=== PATIENT | female | born 1995 | race Caucasian/White ===

== ENCOUNTER 2016-12-23 20:17 | Emergency (ER) | payer OTHER ==
[~2016-12-23] VITALS: Ht 154.9 cm; Wt 64.4 kg
[2016-12-23 20:21] VITALS: TEMP 37; Ht 154.9 cm; Wt 64.4 kg
[2016-12-23 22:35] VITALS: O2SAT 98
[2016-12-23 22:58] LABS: BASO % 0.5 %; BASO ABS # 0.03 K/uL (0-0.2); COMPLETE YES; EOS % 2.5 %; HEMATOCRIT 40.7 % (37-47); LYMPH % 41.1 %; LYMPH ABS # 2.66 K/uL (1.2-3.4); MEAN CELL VOLUME 88.7 fL (80-100); MEAN CORPUSCULAR HEMOGLOBIN 30.5 pg (25-34); MEAN CORPUSCULAR HGB CONC 34.4 g/dl (32-36); MEAN PLATELET VOLUME 10.5 fL (7.4-10.4); MONO % 8.7 %; NEUT % 47.2 %; PLATELET COUNT 214 K/uL (130-400); RED BLOOD COUNT 4.59 M/uL (4.2-5.4); WHITE BLOOD COUNT 6.47 K/uL (4.8-10.8)
[2016-12-23 23:13] LABS: PARTIAL THROMBOPLASTIN RATIO 1.2; PROTHROMBIN TIME (PATIENT) 10.9 SECONDS (9.0-12.0)
[2016-12-23 23:17] LABS: ALT/SGPT 20 U/L (12-78); AST/SGOT 17 U/L (15-37); BLOOD UREA NITROGEN 12 mg/dl (7-18); BUN/CREATININE RATIO 16.5 (10-20); CARBON DIOXIDE 27 mmol/L (21-32); CHLORIDE 103 mmol/L (98-107); CREATININE 0.71 mg/dl (0.60-1.20); GLUCOSE 79 mg/dl (70-99); MAGNESIUM 2.1 mg/dl (1.8-2.4); POTASSIUM 3.7 mmol/L (3.5-5.1); SODIUM 142 mmol/L (136-145)
[2016-12-23 23:28] LABS: ALKALINE PHOSPHATASE 66 U/L (45-117)
[2016-12-23 23:38] LABS: PREG INTERNAL NEGATIVE QC NEG CLEAR BACKGROUND; PREG INTERNAL POSITIVE QC POS CONTROL LINE
[2016-12-23] MEDS ORDERED: BUPR75TA20 PO (23:41)
[2016-12-23] MEDS ORDERED: CITA40TA4 PO (23:41)
[2016-12-23] MEDS ORDERED: CITA10TA8 PO (23:41)
[2016-12-24 00:08] LABS: LYME DISEASE AB IGG NEG (NEG); LYME DISEASE AB IGM NEG (NEG)
[2016-12-24 00:29] VITALS: BP 126/55; PULSE 83; O2SAT 99
--- NOTE | 2016-12-24 03:57 | EMERGENCY ROOM VISIT NOTE ---
History First contact with patient: 22:03 Chief Complaint: ILLNESS Stated Complaint: HEADACHE,FATIGUE,BRUISING ON LEGS,ACHY MUSCLES, TI History of Present Illness The patient is a 21 year old female who presents to the Emergency Room with complaints of fatigue, headaches, nausea, occasional bruising for the past few months. Patient states sometimes when she wakes up she is a headache with nausea. Patient does take anti-anxiety and depression medications. No recent change in this. She does not see a therapist. Patient denies chest pain, dyspnea, fever, chills, neck stiffness, sore throat, abdominal pain, joint swellings, cough, congestion. She is tolerating by mouth fluids and food. Patient states she just was to make sure she is okay. Review of Systems See HPI for pertinent positives & negatives. A total of 10 systems reviewed and were otherwise negative. Past Medical/Surgical History anxiety, depression Social History Smoking Status: Never Smoker Current/Historical Medications Scheduled Bupropion (Wellbutrin), Unknown Dose PO DAILY Citalopram (Citalopram Hydrobromide), Unknown Dose PO DAILY Citalopram Hydrobromide (Celexa), 10 MG PO DAILY Allergies Coded Allergies: No Known Allergies (Unverified , 12/23/16) Physical Exam Vital Signs Date Time Temp Pulse Resp B/P Pulse Ox O2 Delivery O2 Flow Rate FiO2 12/24/16 00:29 83 20 126/55 99 Room Air 12/23/16 22:49 63 12/23/16 22:47 63 16 118/65 100 Room Air 72 112/75 87 117/67 12/23/16 22:41 63 20 121/65 98 Room Air 12/23/16 22:35 98 Room Air 12/23/16 20:21 37.0 66 18 117/68 94 Room Air Pain Rating (0-10): 3.0 Physical Exam VITALS: Vitals are noted on the nurse's note and reviewed by myself. Vital signs stable. GENERAL: Pleasant female, in no acute distress, nondiaphoretic, well-developed well-nourished. SKIN: The skin was without rashes, erythema, edema, or bruising. There is no tenting of the skin. Capillary reflex less than 2 seconds. HEAD: Normocephalic atraumatic. EARS: External auditory canals clear, tympanic membranes pearly kessler without erythema or effusion bilaterally. EYES: Pupils equal round and reactive to light and accommodation. Conjunctivae without injection, sclerae without icterus. Extraocular movements intact. NOSE: Patent, turbinates without inflammation or discharge. No sinus tenderness. MOUTH: Mucous membranes moist. Pharynx without erythema or exudate. Uvula midline. Airway patent. Tongue does not deviate. NECK: Supple without nuchal rigidity. No lymphadenopathy. No thyromegaly. Cervical spine is nontender. No JVD. HEART: Regular rate and rhythm without murmurs gallops or rubs. LUNGS: Clear to auscultation bilaterally without wheezes, rales or rhonchi. No dullness to percussion. No retractions or accessory muscle use. ABDOMEN: Positive bowel sounds x 4. Normal tympanic percussion. Soft, nontender, without masses or organomegaly. Cheatham sign negative. No guarding or rebound tenderness. MUSCULOSKELETAL: No muscle atrophy, erythema, or edema noted. NEURO: Patient was alert and oriented to person place and time. Normal sensation to light and sharp touch. No focal neurological deficits. Cranial nerves II-12 grossly intact. No pronator drift. Cerebellar exam intact Medical Decision & Procedures Laboratory Results 12/23/16 22:35 Red Blood Count 4.59, Mean Corpuscular Volume 88.7, Mean Corpuscular Hemoglobin 30.5, Mean Corpuscular Hemoglobin Concent 34.4, Mean Platelet Volume 10.5, Neutrophils (%) (Auto) 47.2, Lymphocytes (%) (Auto) 41.1, Monocytes (%) (Auto) 8.7, Eosinophils (%) (Auto) 2.5, Basophils (%) (Auto) 0.5, Neutrophils # (Auto) 3.06, Lymphocytes # (Auto) 2.66, Monocytes # (Auto) 0.56, Eosinophils # (Auto) 0.16, Basophils # (Auto) 0.03 12/23/16 22:35 Test 12/23/16 22:35 White Blood Count 6.47 K/uL (4.8-10.8) Red Blood Count 4.59 M/uL (4.2-5.4) Hemoglobin 14.0 g/dL (12.0-16.0) Hematocrit 40.7 % (37-47) Mean Corpuscular Volume 88.7 fL (80-100) Mean Corpuscular Hemoglobin 30.5 pg (25-34) Mean Corpuscular Hemoglobin Concent 34.4 g/dl (32-36) Platelet Count 214 K/uL (130-400) Mean Platelet Volume 10.5 fL (7.4-10.4) Neutrophils (%) (Auto) 47.2 % Lymphocytes (%) (Auto) 41.1 % Monocytes (%) (Auto) 8.7 % Eosinophils (%) (Auto) 2.5 % Basophils (%) (Auto) 0.5 % Neutrophils # (Auto) 3.06 K/uL (1.4-6.5) Lymphocytes # (Auto) 2.66 K/uL (1.2-3.4) Monocytes # (Auto) 0.56 K/uL (0.11-0.59) Eosinophils # (Auto) 0.16 K/uL (0-0.5) Basophils # (Auto) 0.03 K/uL (0-0.2) RDW Standard Deviation 40.5 fL (36.4-46.3) RDW Coefficient of Variation 12.8 % (11.5-14.5) Immature Granulocyte % (Auto) 0.0 % Immature Granulocyte # (Auto) 0.00 K/uL (0.00-0.02) Prothrombin Time 10.9 SECONDS (9.0-12.0) Prothromb Time International Ratio 1.0 (0.9-1.1) Activated Partial Thromboplast Time 30.8 SECONDS (21.0-31.0) Partial Thromboplastin Ratio 1.2 Anion Gap 12.0 mmol/L (3-11) Est Creatinine Clear Calc Drug Dose 108.6 ml/min Estimated GFR () 142.1 Estimated GFR (Non- 122.6 BUN/Creatinine Ratio 16.5 (10-20) Calcium Level 9.0 mg/dl (8.5-10.1) Magnesium Level 2.1 mg/dl (1.8-2.4) Total Bilirubin 0.2 mg/dl (0.2-1) Direct Bilirubin < 0.1 mg/dl (0-0.2) Aspartate Amino Transf (AST/SGOT) 17 U/L (15-37) Alanine Aminotransferase (ALT/SGPT) 20 U/L (12-78) Alkaline Phosphatase 66 U/L (45-117) Total Protein 7.9 gm/dl (6.4-8.2) Albumin 4.2 gm/dl (3.4-5.0) Thyroid Stimulating Hormone (TSH) 3.440 uIu/ml (0.300-4.500) Human Chorionic Gonadotropin, Qual NEG (NEG) Lyme Disease IgG Antibody NEG (NEG) Lyme Disease IgM Antibody NEG (NEG) Monoscreen NEG (NEG) ED Course Prior records/ancillary studies reviewed and summarized above. Nursing notes reviewed. Additional history obtained from friends The patient's history was concerning for fatigue, headache, nausea Differential diagnosis: Etiologies such as metabolic, infection, hypo/hyperglycemia, electrolyte abnormalities, cardiac sources, intracerebral event, toxicologic, neurologic, as well as others were entertained. Physical examination: As above. ER treatment provided: IV Lock By mouth fluids On reassessment the patient felt better. Diagnostics interpretation by me: ECG: Normal sinus, normal intervals, no acute ST-T wave changes. Impression normal sinus rhythm interpreted by myself The labs revealed no worrisome leukocytosis or electrolyte abnormality. Euthyroid, negative mono Imaging studies: CT head negative for intracranial bleed per stat radiology Exam and history seem consistent with fatigue with unclear etiology. This could be related to patient's depression. She was strongly encouraged to follow -up with health services for further evaluation and workup for her ongoing fatigue. Patient had no suicidal or homicidal ideations. Patient had unremarkable workup. She is well-appearing. She is neurovascularly and neurologically intact. She is advised to return to the ER immediately for headache, fevers, confusion, worsening signs or symptoms or as needed. By the evaluation outlined above emergent etiologies such as infection, electrolyte abnormalities, cardiac sources, intracerebral event, toxologic, neurologic, abnormalities blood glucose, metabolic, as well as others were deemed relatively unlikely. The pt informed about the findings as listed above. All questions were answered and pleased with the treatment. Return instructions were outlined and the patient was discharged in stable condition. Case reviewed with my attending Referral: The patient was referred back to primary care physician for follow-up in 2 to 3 days for a recheck of the current condition. Medical Decision As above Impression Primary Impression: Fatigue Departure Information Dispostion Home / Self-Care Condition GOOD Forms WORK / SCHOOL INSTRUCTIONS, HOME CARE DOCUMENTATION FORM, Days off school: 1 School Instructions, IMPORTANT VISIT INFORMATION Patient Instructions My [facility] Additional Instructions Ibuprofen(Motrin, Advil) may be used for fever or pain. Use 600mg every six hours as needed. Take with food. Avoid using more than 2400mg in a 24 hour period. Do not use 2400mg per day for more than three consecutive days without physician direction. Prolonged inappropriate use can lead to stomach upset or ulcers. (AND/OR) Acetaminophen(Tylenol) may be used for fever or pain. Use 1000mg every six hours as needed. Avoid using more than 3000mg in a 24 hour period. Rest and drink plenty of fluids as tolerated. Continue current medications. Return to the ER immediately for worsening or persistent fatigue, abdominal pain , vomiting, fevers, chest pains, difficulty breathing, worsening of your condition, or as needed. Follow up with your primary physician in 2-3 days for a recheck of your current condition. Problem Qualifiers Primary Impression: Fatigue Fatigue type: unspecified Qualified Codes: R53.83 - Other fatigue
--- NOTE | 2016-12-24 06:40 | DIAGNOSTIC IMAGING REPORT ---
CT OF THE HEAD WITHOUT CONTRAST CLINICAL HISTORY: Headache and nausea. COMPARISON STUDY: No previous studies for comparison. CT DOSE: 1074.96 mGy.cm TECHNIQUE: Helical axial images of the head were obtained without IV contrast. Automated exposure control was utilized for the study. FINDINGS: No acute intracranial hemorrhage, midline shift or mass effect is present. Brain volume is normal. Ventricular system is normal. Basilar cisterns are patent. There are no extra-axial collections. Silva-white differentiation is maintained. There are no findings to suggest acute dural sinus thrombosis or acute territorial infarct. There are no calvarial abnormalities. Visualized portions of the sinuses and the mastoid air cells are clear. IMPRESSION: No acute intracranial findings. Electronically signed by: Jean Olmos M.D. 12/24/2016 6:38 AM Dictated Date/Time: 12/24/2016 6:37 AM
== END 2016-12-24 00:34 | disposition home or self-care (01) ==
LOC: C.EDB 20:20 → C.EDC 12-24 00:34
DX: R53.83 Other fatigue (principal); F41.9 Anxiety disorder, unspecified; F32.9 Major depressive disorder, single episode, unspecified

== ENCOUNTER 2017-08-19 19:30 | Emergency (ER) | payer OTHER ==
[~2017-08-19] VITALS: Ht 157.5 cm; Wt 68.9 kg
[~2017-08-19 19:30] MED LIST: BUPR75TA20 PO; CITA10TA8 PO; CITA40TA4 PO
[2017-08-19 19:35] VITALS: TEMP 37.1; Ht 157.5 cm; Wt 68.9 kg
[2017-08-19] MEDS ORDERED: LORAZEPAM 1 MG TAB SL STA (19:58)
[2017-08-19] MEDS ORDERED: hydrOXYzine HCL 25 MG TAB PO STA (20:15)
[2017-08-19] MEDS ORDERED: BUPR-79 PO (20:20)
[2017-08-19 20:41] LABS: BASO % 0.3 %; BASO ABS # 0.03 K/uL (0-0.2); COMPLETE YES; EOS % 2.1 %; HEMATOCRIT 40.9 % (37-47); IG% 0.3 %; LYMPH % 24.8 %; LYMPH ABS # 2.34 K/uL (1.2-3.4); MEAN CELL VOLUME 88.1 fL (80-100); MEAN CORPUSCULAR HEMOGLOBIN 28.9 pg (25-34); MEAN CORPUSCULAR HGB CONC 32.8 g/dl (32-36); MEAN PLATELET VOLUME 10.6 fL (7.4-10.4); NEUT % 66.5 %; PLATELET COUNT 228 K/uL (130-400); RED BLOOD COUNT 4.64 M/uL (4.2-5.4); WHITE BLOOD COUNT 9.44 K/uL (4.8-10.8)
[2017-08-19 20:59] LABS: URINE APPEARANCE CLOUDY (CLEAR); URINE BILIRUBIN NEG (NEG); URINE COLOR YELLOW; URINE EPITHELIAL CELL AUTO >30 /lpf (0-5); URINE NITRITE NEG (NEG); URINE SPECIFIC GRAVITY 1.027 (1.000-1.030); UROBILINOGEN NEG (NEG)
[2017-08-19 21:00] LABS: MANUAL MICROSCOPIC REQUIRED? NO; REVIEW REQ? NO
[2017-08-19 21:07] LABS: ALT/SGPT 38 U/L (12-78); BLOOD UREA NITROGEN 15 mg/dl (7-18); BUN/CREATININE RATIO 18.5 (10-20); CALCIUM 9.4 mg/dl (8.5-10.1); CARBON DIOXIDE 26 mmol/L (21-32); CHLORIDE 104 mmol/L (98-107); GLUCOSE 83 mg/dl (70-99); POTASSIUM 3.8 mmol/L (3.5-5.1); SODIUM 137 mmol/L (136-145)
[2017-08-19 21:09] LABS: BENZODIAZEPINE, URINE NEG (NEG); COCAINE,URINE NEG (NEG); PHENCYCLIDINE, URINE NEG (NEG)
[2017-08-19 21:18] LABS: ALKALINE PHOSPHATASE 66 U/L (45-117); AST/SGOT 31 U/L (15-37)
[2017-08-19] MEDS ORDERED: HYDR1CAP85 PO (21:57)
[2017-08-19 21:59] VITALS: BP 114/63; PULSE 76; O2SAT 98
--- NOTE | 2017-08-19 22:41 | EMERGENCY ROOM VISIT NOTE ---
History Report prepared by Eva: Gina Mccallum Under the Supervision of: Dr. Tripp Vega D.O. First contact with patient: 19:44 Chief Complaint: MENTAL HEALTH EVALUATION Stated Complaint: WITHDRAWL FROM ANTIDEPRESSANT History of Present Illness The patient is a 22 year old female who presents to the Emergency Room with complaints of worsening depression starting last week. She has a history of depression over the past 3 years and has been on Wellbutrin and Lexapro. She states that she stopped taking them last week because she was gaining weight. The weight gain was making her feel worse about herself, so she decided to try stopping them. She also felt that the medications were not helping her. Since stopping her medications, she has been having negative thoughts. She is afraid of doing something impulsive so she came to the ED. She is a [employer] student. She took a Wellbutrin today because she thought that she might be withdrawing from her medications. She does not have any thoughts of hurting herself. She is having difficulty sleeping at night and taking naps during the day. She is also stressed out because she is breaking up with her boyfriend. She states that she is doing well in school. She goes to the gym 4 times a week. She denies any previous ED visits or inpatient psychiatric care. She is not on any other medications. She has not had any surgeries or medical issues. She denies any tobacco use. She admits to occasional alcohol use. Her last menstrual period ended 2 days ago. She denies any chance of . She has not been sick recently. Source of History: patient Onset: last week Position: other (global) Quality: other (depression) Timing: worsening Note: Pt denies thoughts of hurting herself, difficulty sleeping. Review of Systems See HPI for pertinent positives & negatives. A total of 10 systems reviewed and were otherwise negative. Past Medical & Surgical Medical Problems: (1) Depression Family History No pertinent family history stated. Social History Smoking Status: Never Smoker Occupation Status: [employer] student Current/Historical Medications Scheduled Bupropion (Wellbutrin Sr), 150 MG PO DAILY Hydroxyzine Pamoate (Vistaril), 25 MG PO Q8 Allergies Coded Allergies: No Known Allergies (Unverified , 08/19/17) Physical Exam Vital Signs Date Time Temp Pulse Resp B/P (MAP) Pulse Ox O2 Delivery O2 Flow Rate FiO2 08/19/17 21:59 76 16 114/63 98 08/19/17 21:34 76 16 114/63 98 Room Air 08/19/17 19:35 37.1 73 18 152/82 92 Room Air Physical Exam GENERAL: Patient is awake, alert, somewhat anxious appearing, but not uncomfortable. EYES: The conjunctivae are clear. The pupils are round and reactive. EARS, NOSE, MOUTH AND THROAT: The nose is without any evidence of any deformity. Mucous membranes are moist tongue is midline NECK: The neck is nontender and supple. RESPIRATORY: Normal respiratory effort is noted there is no evidence of wheezing rhonchi or rales CARDIOVASCULAR: Regular rate and rhythm noted there no murmurs rubs or gallops normal S1 normal S2 GASTROINTESTINAL: The abdomen is soft. Bowel sounds are present in all quadrants. Abdomen is nontender MUSCULOSKELETAL/EXTREMITIES: There is no evidence of gross deformity full range of motion is noted in the hips and shoulders SKIN: There is no obvious evidence of any rash. There are no petechiae, pallor or cyanosis noted. NEUROLOGIC: Patient is awake alert and oriented x3 strength is symmetric patellar reflexes are 2+ bilaterally PSYCH: Somewhat guarded appearing and anxious. Affect is flat. Pt makes poor eye contact. Currently denies any SI or HI. Medical Decision & Procedures Laboratory Results 08/19/17 20:29 Red Blood Count 4.64, Mean Corpuscular Volume 88.1, Mean Corpuscular Hemoglobin 28.9, Mean Corpuscular Hemoglobin Concent 32.8, Mean Platelet Volume 10.6, Neutrophils (%) (Auto) 66.5, Lymphocytes (%) (Auto) 24.8, Monocytes (%) (Auto) 6.0, Eosinophils (%) (Auto) 2.1, Basophils (%) (Auto) 0.3, Neutrophils # (Auto) 6.27, Lymphocytes # (Auto) 2.34, Monocytes # (Auto) 0.57, Eosinophils # (Auto) 0.20, Basophils # (Auto) 0.03 08/19/17 20:29 Test 08/19/17 19:50 08/19/17 20:29 Urine Color YELLOW Urine Appearance CLOUDY (CLEAR) Urine pH 7.0 (4.5-7.5) Urine Specific [place] 1.027 (1.000-1.030) Urine Protein NEG (NEG) Urine Glucose (UA) NEG (NEG) Urine Ketones NEG (NEG) Urine Occult Blood NEG (NEG) Urine Nitrite NEG (NEG) Urine Bilirubin NEG (NEG) Urine Urobilinogen NEG (NEG) Urine Leukocyte Esterase NEG (NEG) Urine WBC (Auto) 0 /hpf (0-5) Urine RBC (Auto) 0-4 /hpf (0-4) Urine Hyaline Casts (Auto) 1-5 /lpf (0-5) Urine Epithelial Cells (Auto) >30 /lpf (0-5) Urine Bacteria (Auto) 1+ (NEG) Urine Test NEG (NEG) Urine Opiates Screen NEG (NEG) Urine Methadone, Qualitative NEG (NEG) Urine Barbiturates NEG (NEG) Urine Phencyclidine (PCP) Level NEG (NEG) Ur Amphetamine/Methamphetamine NEG (NEG) MDMA (Ecstasy) Screen POS (NEG) Urine Benzodiazepines Screen NEG (NEG) Urine Cocaine Metabolite NEG (NEG) Urine Marijuana (THC) NEG (NEG) White Blood Count 9.44 K/uL (4.8-10.8) Red Blood Count 4.64 M/uL (4.2-5.4) Hemoglobin 13.4 g/dL (12.0-16.0) Hematocrit 40.9 % (37-47) Mean Corpuscular Volume 88.1 fL (80-100) Mean Corpuscular Hemoglobin 28.9 pg (25-34) Mean Corpuscular Hemoglobin Concent 32.8 g/dl (32-36) Platelet Count 228 K/uL (130-400) Mean Platelet Volume 10.6 fL (7.4-10.4) Neutrophils (%) (Auto) 66.5 % Lymphocytes (%) (Auto) 24.8 % Monocytes (%) (Auto) 6.0 % Eosinophils (%) (Auto) 2.1 % Basophils (%) (Auto) 0.3 % Neutrophils # (Auto) 6.27 K/uL (1.4-6.5) Lymphocytes # (Auto) 2.34 K/uL (1.2-3.4) Monocytes # (Auto) 0.57 K/uL (0.11-0.59) Eosinophils # (Auto) 0.20 K/uL (0-0.5) Basophils # (Auto) 0.03 K/uL (0-0.2) RDW Standard Deviation 43.6 fL (36.4-46.3) RDW Coefficient of Variation 13.6 % (11.5-14.5) Immature Granulocyte % (Auto) 0.3 % Immature Granulocyte # (Auto) 0.03 K/uL (0.00-0.02) Anion Gap 7.0 mmol/L (3-11) Est Creatinine Clear Calc Drug Dose 101.2 ml/min Estimated GFR () 122.2 Estimated GFR (Non- 105.4 BUN/Creatinine Ratio 18.5 (10-20) Calcium Level 9.4 mg/dl (8.5-10.1) Total Bilirubin 0.3 mg/dl (0.2-1) Direct Bilirubin < 0.1 mg/dl (0-0.2) Aspartate Amino Transf (AST/SGOT) 31 U/L (15-37) Alanine Aminotransferase (ALT/SGPT) 38 U/L (12-78) Alkaline Phosphatase 66 U/L (45-117) Total Protein 8.5 gm/dl (6.4-8.2) Albumin 4.6 gm/dl (3.4-5.0) Thyroid Stimulating Hormone (TSH) 1.690 uIu/ml (0.300-4.500) Ethyl Alcohol mg/dL < 3.0 mg/dl (0-3) Laboratory results per my review. Medications Administered Medications (Trade) Dose Ordered Sig/Audrey Route Start Time Stop Time Status Last Admin Dose Admin Hydroxyzine HCl (Vistaril Tab) 25 mg NOW STAT PO 08/19/17 20:15 08/19/17 20:16 DC 08/19/17 20:22 25 MG ED Course 1948: The patient was evaluated in room A7. A complete history and physical examination were performed. 2015: Vistaril Tab 25 mg PO. 2144: Upon reevaluation, the patient is resting comfortably. I discussed the results and treatment plan with her. She verbalized agreement of the treatment plan. She was discharged home. Medical Decision Prior records/ancillary studies reviewed. Triage Nursing notes reviewed. The patient's history was concerning for possible psychiatric disturbance. Differential diagnosis: Etiologies such as mood disorder, infection, hypoglycemia, electrolyte abnormalities, cardiac sources, intracerebral event, toxicologic, neurologic, as well as others were entertained. The patient is a 22-year-old female who presented to the emergency department for a mental health evaluation. The patient has underlying depression and anxiety issues. The patient was medically cleared in the emergency department. At this time she is only partially compliant with her medications. It sounds as though which she is describing could be related to stopping her medications last week. She was treated with Vistaril in the emergency department and was significantly improved. She was medically cleared and then evaluated by the emergency Department mental health family service caseworker. She was felt to be a good candidate for outpatient follow-up and I agree with this plan. She was encouraged to continue all medications as prescribed and follow-up with the outpatient provider's is possible. She was also encouraged to call crisis or return to the emergency department if symptoms change worsen or need arises. Medication Reconcilliation Current Medication List: was personally reviewed by me Blood Pressure Screening Patient's blood pressure: Normal blood pressure Blood pressure disposition: Did not require urgent referral Impression Primary Impression: Depression Additional Impressions: Anxiety Noncompliance with medications Scribe Attestation The scribe's documentation has been prepared under my direction and personally reviewed by me in its entirety. I confirm that the note above accurately reflects all work, treatment, procedures, and medical decision making performed by me. Departure Information Dispostion Home / Self-Care Prescriptions Hydroxyzine Pamoate (VISTARIL) 25 Mg Cap 25 MG PO Q8 for Anxiety/Insomnia, #25 CAP Prov: Tripp Vega, DO 08/19/17 Referrals No Doctor, Assigned (PCP) Forms HOME CARE DOCUMENTATION FORM, IMPORTANT VISIT INFORMATION Patient Instructions My [facility] Additional Instructions Follow up with S this week. Follow up with your therapist as soon as possible. Call Crisis or return to the ER if the need arises Problem Qualifiers
== END 2017-08-19 22:00 | disposition home or self-care (01) ==
LOC: C.EDB 19:32 → C.EDA 22:00
DX: F32.9 Major depressive disorder, single episode, unspecified (principal); F41.9 Anxiety disorder, unspecified; Z91.19 Patient's noncompliance with other medical treatment and regimen; Z79.899 Other long term (current) drug therapy

== ENCOUNTER → 2017-11-19 | Outpatient (CLI) | payer OTHER ==
[~2017-11-19] MED LIST changes: +BUPR-79 PO; -BUPR75TA20 PO; -CITA10TA8 PO; -CITA40TA4 PO
[2017-11-19 14:52] LABS: HEP C IGG 13 YRS+OLDER_RFLX NEG (NEG)
== END | disposition home or self-care (01) ==
LOC: C.LAB1850 11:22
PROVIDERS: ATTEND Obstetrics & Gynecology
DX: Z01.419 Encounter for gynecological examination (general) (routine) without abnormal findings (principal); Z11.3 Encounter for screening for infections with a predominantly sexual mode of transmission

== ENCOUNTER → 2017-11-19 | Outpatient (CLI) | payer OTHER | END | disposition home or self-care (01) | LOC: C.PAPS 13:29 | PROVIDERS: ATTEND Obstetrics & Gynecology | DX: Z12.4 Encounter for screening for malignant neoplasm of cervix (principal) ==